=== PATIENT | male | born 1995 ===

== ENCOUNTER 2018-05-06 09:02 | Emergency (ER) | payer OTHER ==
[2018-05-06] MEDS ORDERED: Sodium Chloride 0.9% 1,000 ML IV STA (09:33)
[2018-05-06] MEDS ORDERED: Iohexol 240 (50 ml) PO ONE (09:33)
--- NOTE | 2018-05-06 09:47 | ED PDOC ---
HPI: Abdomen Time Seen by Provider: 05/06/18 09:08 Chief Complaint (Nursing): Abdominal Pain Chief Complaint (Provider): Abdominal Pain History Per: Patient History/Exam Limitations: no limitations Onset/Duration Of Symptoms: Days (x2) Outside of [place] travel?: No Current Symptoms Are (Timing): Constant Associated Symptoms: Nausea, Diarrhea. denies: Vomiting, Chest Pain, Urinary Symptoms Additional Complaint(s): Patient is a 22 y/o male with no significant past medical history who presents to the ED complaining of abdominal pain, onset x2 days ago. Patient reports that the pain is constant. He states he took a pill for gastritis but it did not help. Patient reports he also has diarrhea, nausea and fever. He denies any urinary symptoms, vomiting, chest pain, or shortness of breath. He also denies any recent travel and states that he normally eats spicy food. Past Medical History Reviewed: Historical Data, Nursing Documentation, Vital Signs Vital Signs: Last Vital Signs Temp 97 F L 05/06/18 09:13 Pulse 74 05/06/18 09:13 Resp 20 05/06/18 09:13 BP 121/79 05/06/18 09:13 Pulse Ox 98 05/06/18 09:13 - Medical History PMH: Denies: Chronic Kidney Disease - Surgical History Surgical History: No Surg Hx - Family History Family History: States: Unknown Family Hx - Home Medications Home Medications: Ambulatory Orders Medication Instructions Recorded Famotidine [Pepcid] 20 mg PO DAILY PRN #6 tab 05/06/18 - Allergies Allergies/Adverse Reactions: Allergies Allergy/AdvReac Type Severity Reaction Status Date / Time No Known Allergies Allergy Verified 05/06/18 09:12 Review of Systems ROS Statement: Except As Marked, All Systems Reviewed And Found Negative Constitutional: Positive for: Fever Cardiovascular: Negative for: Chest Pain Respiratory: Negative for: Shortness of Breath Gastrointestinal: Positive for: Nausea, Abdominal Pain, Diarrhea. Negative for: Vomiting Genitourinary Male: Negative for: Dysuria, Frequency, Incontinence Physical Exam - Reviewed Nursing Documentation Reviewed: Yes Vital Signs Reviewed: Yes - Physical Exam Appears: Positive for: Non-toxic, No Acute Distress Head Exam: Positive for: ATRAUMATIC, NORMOCEPHALIC Skin: Positive for: Normal Color, Warm, DRY Eye Exam: Positive for: EOMI, Normal appearance, PERRL ENT: Positive for: Normal ENT Inspection Neck: Positive for: Normal, Painless ROM, Supple Cardiovascular/Chest: Positive for: Regular Rate, Rhythm. Negative for: Murmur Respiratory: Positive for: Normal Breath Sounds. Negative for: Respiratory Distress Gastrointestinal/Abdominal: Positive for: Tenderness (diffuse mild tenderness). Negative for: Guarding, Rebound Back: Positive for: Normal Inspection. Negative for: L CVA Tenderness, R CVA Tenderness Extremity: Positive for: Normal ROM. Negative for: Pedal Edema, Deformity Neurologic/Psych: Positive for: Alert, Oriented. Negative for: Motor/Sensory Deficits - Laboratory Results Result Diagrams: 05/06/18 10:17 05/06/18 10:17 Interpretation Of Abn Labs: no acute Urine dip results: Negative for: Leukocyte Esterase, Nitrate - ECG O2 Sat by Pulse Oximetry: 98 (RA) Pulse Ox Interpretation: Normal - CT Scan/US ct Other Rad Studies (CT/US): Read By Radiologist Other Rad Interpretation: no acute - Progress ED Course And Treament: 1422: Stable. AAOx3. Pain free. Tolerated PO. FU with pcp. Medical Decision Making Medical Decision Making: Time: 09:32 Initial Impression: Abdominal pain Initial Plan: --CT Abd Pelvis --CMP --Lipase --Urine dipstick --CBC w/ diff --Bentyl --IV fluids --Omnipaque 50 ml --Toradol 15 mg Scribe Attestation: Documented by Juan Shore acting as a scribe for Babatunde Burks MD Provider Scribe Attestation: All medical record entries made by the Scribe were at my direction and personally dictated by me. I have reviewed the chart and agree that the record accurately reflects my personal performance of the history, physical exam, medical decision making, and the department course for this patient. I have also personally directed, reviewed, and agree with the discharge instructions and disposition. Disposition - Clinical Impression Clinical Impression: Abdominal pain, Diarrhea - Patient ED Disposition Is Patient to be Admitted: No Counseled Patient/Family Regarding: Studies Performed, Diagnosis, Need For Followup, Rx Given - Disposition Referrals: [facility] [Outside] - 05/07/18 Disposition: Routine/Home Disposition Time: 14:23 Condition: STABLE Additional Instructions: Return if not better in 3 days. Prescriptions: Famotidine [Pepcid] 20 mg PO DAILY PRN #6 tab PRN Reason: Pain Instructions: Stomach Ache and Stomach Upset, Diarrhea in Adolescents and Adults Print Language: PALESTINIAN
[2018-05-06] MEDS ORDERED: Iohexol 240 (50 ml) ONE (10:09)
[2018-05-06 10:31] LABS: BASO % 0.5 % (0.0-2.0); EOS # 0.2 K/uL (0.0-0.7); EOS % 4.2 % (0.0-4.0); HEMOGLOBIN 16.2 g/dL (12.0-18.0); LYMPH # 1.7 K/uL (1.0-4.3); LYMPH % 29.3 % (20.0-40.0); MEAN CELL VOLUME 98.4 fl (80.0-94.0); MEAN CORPUSCULAR HEMOGLOBIN 34.5 pg (27.0-31.0); MEAN PLATELET VOLUME 8.6 fl (7.2-11.7); MONO # 0.4 K/uL (0.0-0.8); MONO % 7.4 % (0.0-10.0); NEUT # 3.4 K/uL (1.8-7.0); NEUT % 58.6 % (50.0-75.0); NRBC % 0.1 % (0.0-0.0); RBC 4.7 Mil/uL (4.40-5.90); WHITE BLOOD COUNT 5.8 K/uL (4.8-10.8)
[2018-05-06 10:53] LABS: ALB/GLOB RATIO 1.4 (1.0-2.1); ALBUMIN 4.3 g/dL (3.5-5.0); ALT/SGPT 29 U/L (21-72); AST/SGOT 25 U/L (17-59); BLOOD UREA NITROGEN 11 mg/dl (9-20); CALCIUM 9.4 mg/dL (8.4-10.2); GFR NON-AFRICAN AMERICAN > 60; LIPASE 98 U/L (23-300)
[2018-05-06] MEDS ORDERED: Sodium Chloride 0.9% 50 ML IV ONE (13:04)
[2018-05-06] MEDS ORDERED: Iohexol 300 100 ML IJ ONE (13:04)
--- NOTE | 2018-05-06 14:01 | CT ---
Date of service: 05/06/2018 PROCEDURE: CT Abdomen and Pelvis with contrast HISTORY: abd pain COMPARISON: None. TECHNIQUE: Following oral and intravenous contrast administration, a CT examination of the abdomen and pelvis performed from the domes of the diaphragms to the symphysis pubis with reformatted datasets provided not only axial but also sagittal and coronal series. Coronal and sagittal reformats were generated. contrast dose: Omnipaque 300, 95 cc Radiation dose: Total exam DLP = 220.98 mGy-cm. This CT exam was performed using one or more of the following dose reduction techniques: Automated exposure control, adjustment of the mA and/or kV according to patient size, and/or use of iterative reconstruction technique. FINDINGS: LOWER THORAX: Unremarkable. LIVER: Unremarkable. No gross lesion or ductal dilatation. GALLBLADDER AND BILE DUCTS: Unremarkable. PANCREAS: Unremarkable. No gross lesion or ductal dilatation. SPLEEN: Unremarkable. ADRENALS: Unremarkable. No mass. KIDNEYS AND URETERS: Unremarkable. No hydronephrosis. No solid mass. VASCULATURE: Unremarkable. No aortic aneurysm. BOWEL: The stomach appears unremarkable. There is no bowel obstruction. [id number] retained fecal material scattered throughout various large-bowel segments. There is a lengthy normal-appearing retrocecal appendix. Much of this small bowel is collapsed limiting evaluation of the willard. No definitive mural thickening is appreciated to suggest definitive mass or segmental infectious/inflammatory bowel process. PERITONEUM: Unremarkable. No free fluid. No free air. LYMPH NODES: Unremarkable. No enlarged lymph nodes. BLADDER: Unremarkable. REPRODUCTIVE: Unremarkable. BONES: No acute fracture. OTHER FINDINGS: None. IMPRESSION: No definite acute abdominal or pelvic findings. If there is clinical concern remaining for intra-abdominal or pelvic pathology then consider follow-up ultrasonography or repeat CT imaging in 12-24 hours.
[2018-05-06 14:42] VITALS: BP 122/75; PULSE 81; RESP 16; TEMP 98.1; O2SAT 100
== END 2018-05-06 14:42 | disposition home or self-care (01) ==
LOC: H.ER 09:02
DX: R10.9 Unspecified abdominal pain (principal); R19.7 Diarrhea, unspecified
CPT/HCPCS: 74177; 80053; 83690; 85025; 96361; 96374; 99284; J1885; J7030; Q9966; Q9967

== ENCOUNTER 2018-12-15 01:57 | Emergency (ER) | payer SELFPAY ==
[2018-12-15 02:14] VITALS: BMI 20.8
[2018-12-15 02:17] VITALS: TEMP 97.9
[2018-12-15] MEDS ORDERED: Sodium Chloride 0.9% 1,000 ML IV STA (02:44)
--- NOTE | 2018-12-15 03:10 | ED PDOC ---
HPI: Abdomen Time Seen by Provider: 12/15/18 02:15 Chief Complaint (Nursing): Abdominal Pain Chief Complaint (Provider): Abdominal pain History Per: Patient, [employer] ([place] Mo [id number]) History/Exam Limitations: no limitations Onset/Duration Of Symptoms: Days Location Of Pain/Discomfort: Diffuse Associated Symptoms: Chills, Nausea, Diarrhea. denies: Fever, Vomiting Additional History Per: Patient Additional Complaint(s): 23yo male, otherwise well, comes to ER reporting 2 weeks of abdominal pain and distention. Patient with associated chills, nausea and diarrhea. He denies any fevers or vomiting. Patient has not taken any medications for symptoms. No additional complaints. Past Medical History Reviewed: Historical Data, Nursing Documentation, Vital Signs Vital Signs: Last Vital Signs Temp 97.9 F 12/15/18 02:13 Pulse 78 12/15/18 02:13 Resp 18 12/15/18 02:13 BP 129/85 12/15/18 02:13 Pulse Ox 98 12/15/18 02:13 Primary Care Provider: Procedure,Nonphys - Medical History PMH: No Chronic Diseases Denies: Chronic Kidney Disease - Surgical History Surgical History: No Surg Hx - Family History Family History: States: No Known Family Hx - Social History Current smoker - smoking cessation education provided: No Alcohol: Occasional Drugs: Denies - Home Medications Home Medications: Ambulatory Orders Medication Instructions Recorded Famotidine [Pepcid] 20 mg PO DAILY PRN #6 tab 05/06/18 Famotidine [Pepcid] 20 mg PO BID PRN #10 tab 12/15/18 - Allergies Allergies/Adverse Reactions: Allergies Allergy/AdvReac Type Severity Reaction Status Date / Time No Known Allergies Allergy Verified 12/15/18 02:13 Review of Systems ROS Statement: Except As Marked, All Systems Reviewed And Found Negative Constitutional: Positive for: Chills. Negative for: Fever Gastrointestinal: Positive for: Nausea, Abdominal Pain, Diarrhea. Negative for: Vomiting Physical Exam - Reviewed Nursing Documentation Reviewed: Yes Vital Signs Reviewed: Yes - Physical Exam Appears: Positive for: Non-toxic, No Acute Distress Head Exam: Positive for: ATRAUMATIC, NORMAL INSPECTION, NORMOCEPHALIC Skin: Positive for: Normal Color Eye Exam: Positive for: Normal appearance ENT: Positive for: Normal ENT Inspection Neck: Positive for: Supple Cardiovascular/Chest: Positive for: Regular Rate, Rhythm. Negative for: Tachycardia Respiratory: Positive for: Normal Breath Sounds. Negative for: Respiratory Distress Gastrointestinal/Abdominal: Positive for: Bowel Sounds, Soft, Tenderness (mid- epigastric tenderness), Other (no right upper or lower quadrant tenderness). Negative for: Mass, Guarding, Rebound Back: Positive for: Normal Inspection Extremity: Positive for: Normal ROM Neurological/Psych: Positive for: Awake, Alert, Normal Tone - Laboratory Results Result Diagrams: 12/15/18 03:03 12/15/18 03:03 - ECG O2 Sat by Pulse Oximetry: 98 (RA) Pulse Ox Interpretation: Normal Medical Decision Making Medical Decision Making: Impression: Abdominal pain, given location and exam likely gastritis Patient evaluated for same symptoms in 2018, diagnosed with gastritis Plan: -- Labs -- Pepcid 20mg IV -- IV Fluids 0600 Labs reviewed, patient with hypokalemia WBC count is normal Potassium chloride 20meq PO ordered Patient reports feeling better, tolerated po in the ED. aware of bloodwork results. vitals stable. Patient counseled on a high potassium diet. Patient is stable for discharge home, informed to follow up with PMD in 1-2 days. Return precautions given. Scribe Attestation: Documented by Felicita Chaudhari acting as a scribe for Jeferson Sharpe MD. Provider Scribe Attestation: All medical record entries made by the Scribe were at my direction and personally dictated by me. I have reviewed the chart and agree that the record accurately reflects my personal performance of the history, physical exam, medical decision making, and the department course for this patient. I have also personally directed, reviewed, and agree with the discharge instructions and disposition. Disposition - Clinical Impression Clinical Impression: Abdominal discomfort, Gastritis - Patient ED Disposition Is Patient to be Admitted: No Counseled Patient/Family Regarding: Studies Performed, Diagnosis, Need For Followup - Disposition Referrals: [facility] [Outside] [facility] [Outside] Dmitry Brooks MD, PhD [Staff Provider] - Disposition: Routine/Home Disposition Time: 04:55 Condition: IMPROVED Additional Instructions: follow up with your primary doctor in 1-2 days also follow up with GI return to the ED with any worsening or concerning symptoms Prescriptions: Famotidine [Pepcid] 20 mg PO BID PRN #10 tab PRN Reason: Heartburn Instructions: Gastritis, Stomach Ache and Stomach Upset Forms: [employer] (Thai), [employer] (Croatian) Print Language: OCCITAN
[2018-12-15 03:19] LABS: BASO % 0.7 % (0.0-2.0); EOS # 0.3 K/uL (0.0-0.7); EOS % 3.8 % (0.0-4.0); HEMOGLOBIN 15.2 g/dL (12.0-18.0); LYMPH # 2.7 K/uL (1.0-4.3); LYMPH % 41.5 % (20.0-40.0); MEAN CELL VOLUME 97.6 fl (80.0-94.0); MEAN CORPUSCULAR HEMOGLOBIN 34.2 pg (27.0-31.0); MEAN PLATELET VOLUME 8.4 fl (7.2-11.7); MONO # 0.4 K/uL (0.0-0.8); MONO % 5.5 % (0.0-10.0); NEUT # 3.2 K/uL (1.8-7.0); NEUT % 48.5 % (50.0-75.0); NRBC % 0.2 % (0.0-0.0); RBC 4.44 Mil/uL (4.40-5.90); RED CELL DISTRIBUTION WIDTH 12.5 % (11.5-14.5); WHITE BLOOD COUNT 6.6 K/uL (4.8-10.8)
[2018-12-15 03:24] LABS: ALB/GLOB RATIO 1.5 (1.0-2.1); ALBUMIN 4.6 g/dL (3.5-5.0); ALT/SGPT 27 U/L (21-72); AST/SGOT 26 U/L (17-59); BLOOD UREA NITROGEN 21 mg/dl (9-20); CALCIUM 8.8 mg/dL (8.4-10.2); GFR NON-AFRICAN AMERICAN > 60; LIPASE 69 U/L (23-300)
[2018-12-15] MEDS ORDERED: Potassium Chloride 20 mEq ER Tab PO ONE ×2 (03:48→04:51)
[2018-12-15 07:18] VITALS: BP 125/80; PULSE 72; RESP 17
[2018-12-16 10:08] VITALS: O2SAT 98
== END 2018-12-15 07:05 | disposition home or self-care (01) ==
LOC: H.ER 01:57
DX: R10.9 Unspecified abdominal pain (principal); K29.70 Gastritis, unspecified, without bleeding; E87.6 Hypokalemia
CPT/HCPCS: 80053; 83690; 85025; 96374; 99283; J7030